=== PATIENT | male | born 1960 | race Caucasian/White ===

== ENCOUNTER 2017-11-24 14:56 | Emergency (ER) | payer OTHER ==
[~2017-11-24] VITALS: Ht 177.8 cm; Wt 109.8 kg
--- NOTE | 2017-11-24 15:20 | ED GENERAL ADULT ---
See Addendum History of Present Illness General Chief Complaint: General Adult Stated Complaint: SENT BY MD ? BLOOD CLOT S/P SURGERY Source: patient, family Exam Limitations: no limitations Vital Signs & Intake/Output Vital Signs & Intake/Output Vital Signs Date Time Temp Pulse Resp B/P B/P Pulse O2 O2 Flow FiO2 Mean Ox Delivery Rate 11/24 2034 97.7 122 18 114/75 93 Room Air ED Intake and Output 11/25 0000 11/24 1200 Intake Total 0 Output Total 550 Balance -550 Intake, Oral 0 Output, Urine 550 Patient 242 lb Weight Allergies Coded Allergies: No Known Allergies (11/24/17) Reconcile Medications Aspirin (Ecotrin*) 81 MG TABLET.DR 1 TAB PO DAILY HEART/BLOOD (Reported) Irbesartan/Hydrochlorothiazide (Irbesartan-Hctz 150-12.5 MG Tb) 150 MG-12.5 MG TABLET 1 TAB PO DAILY BP (Reported) Levothyroxine Sodium 150 MCG TABLET 1 TAB PO DAILY THYROID (Reported) Oxycodone HCl 5 MG TABLET 1-2 TAB PO Q4H PRN ABDOMINAL PAIN (Reported) Sennosides (Senna) 8.6 MG TABLET 2 TAB PO DAILY CONSTIPATION (Reported) Triage Nurses Notes Reviewed? yes Onset: Gradual Duration: day(s): (1) Timing: no prior history Injury Environment: home Severity: moderate Severity Numbers: 8 Modifying Factors: Worsens With: other (EXERTION/BREATHING). HPI: Patient is a 57-year-old male with history of lymphoma, hypertension and hyperlipidemia along with prostate cancer presenting to the emergency department with chief complaint of palpitations, shortness of breath, chills intact fevers at thing going on for the past 24 hours. Patient to taking his prescribed pain medication with little to no relief. I did nausea without vomiting. Patient does report shortness of breath is worse with exertion and deep inspiration. Patient also reporting diffuse abdominal discomfort that is worse with palpation. Patient reports sees been drinking fluids. Has had Acosta catheter in place since the surgical procedure. Called his urologist today and they advised him to come to the emergency department for evaluation to rule out any blood clots. Patient was receiving IV heparin up until 4 days ago. Has not continued aspirin once he got home. (Melissa ITNOCO,Radha) Past History Travel History Traveled to [place] past 21 day No Medical History Any Pertinent Medical History? see below for history Surgical History Surgical History: PROSTECTOMY 11/19/17 Family History Hx Contributory? No (Radha Sánchez) Review of Systems Review of Systems Constitutional: Reports: see HPI, chills, fever, malaise. Comments Review of systems: See HPI, All other systems negative. Constitutional, no weight loss HEENT: No visual changes no sore throat no congestion Cardiovascular: No chest pain or ankle swelling Skin, no jaundice no rashes Respiratory: No cough sputum or hemoptysis GI: no vomiting : No dysuria No hematuria Muscle skeletal: no back pain, no neck pain, Neurologic: No numbness no confusion Psych: No stress anxiety or depression,. Heme/endocrine: No bruising no bleeding no polyuria or polydipsia Immunology: No splenectomy or history of AIDS (Radha Sánchez) Physical Exam Physical Exam General Appearance: alert, awake, anxious, mild distress Comments: Well-developed well-nourished person in no acute distress HEENT:Pupils equally round and reactive to light and accommodation. Nose is atraumatic. Neck: Supple, no lymphadenopathy Back: Nontender, no CVA tenderness. Cardiovascular: Tachycardic rate and rhythms no murmurs rubs or gallops Respiratory: Chest nontender. No respiratory distress.breath sounds diminished to auscultation bilaterally Abdomen: Soft, diffusely tender with more tenderness to palpation in the periumbilical region, positive guarding., slightly distended ,, no appreciable organomegaly. Normal bowel sounds. No ascites Extremity: No edema, no calf tenderness to palpation, normal and equal pulses. Neuro: Alert oriented x3, motor sensory normal, cranial nerves II through XII grossly intact. Skin: Well-healing incisionS noted over the abdomen, no surrounding erythema or edema. There is a scant flat RETICULAR/LACE LIKE rash noted over the anterior abdomen. Blanchable. Slightly erythematous. Psych: Slightly anxious appearing, memory and judgment is normal. Core Measures ACS in differential dx? Yes CVA/TIA Diagnosis: No Sepsis Present: No Sepsis Focused Exam Completed? No (Radha Sánchez) Progress Differential Diagnoses I considered the following diagnoses in my evaluation of the patient: Pulmonary embolus, intra-abdominal infection, UTI, pyelonephritis, hydronephrosis, ACS, sepsis Plan of Care: Orders Procedure Date/time Status Regular Diet 11/25 B Active PARTIAL THROMBOPLASTIN TIME 11/25 0000 Active Patient Data 11/24 2031 Active Patient Data 11/24 1937 Active ED Holding Orders 11/24 1913 Active Admit to inpatient 11/24 1913 Active Vital Signs 11/24 1913 Active Code Status 11/24 1913 Active Intake & Output 11/24 1522 Active Current Medications Sig/Jerry Start time Last Medication Dose Stop Time Status Admin Heparin Sodium 25,000 UNIT Q24H 11/24 1730 AC 11/24 (Porcine) 1808 (Heparin) Sodium Chloride 500 ML Laboratory Tests 11/24/17 2009: Urine Color YEL, Urine Clarity HAZY H, Urine pH 6.5, Ur Specific Cowen <= 1.005, Urine Protein TRACE H, Urine Ketones NEG, Urine Nitrite NEG, Urine Bilirubin NEG, Urine Urobilinogen 0.2, Ur Leukocyte Esterase NEG, Ur Microscopic SEDIMENT EXAMINED, Urine RBC >75 H, Urine WBC 1-3 H, Urine Hemoglobin LARGE H , Urine Glucose NEG 11/24/2017 3:37:54 PM patient appears slightly anxious, patient is tachycardic on exam, slightly diaphoretic. Patient did recently have surgery 6 days ago. Considering postoperative infection first pulmonary embolus. IV fluids initiated along with pain medication. Patient CTA of the chest and CT of the abdomen throughout any infection in that abdominal cavity. Will also send off a urine to tests for UTI. As patient has had Acosta catheter placed since prostatectomy. 11/24/2017 5:02:12 PM spoke with patient's urological surgery, reports that surgery was uneventful and patient tolerated the procedure well.THOUGHT The patient wAS high risk for pulmonary embolus and would be okay with heparinization status post surgery. 11/24/2017 6:08:07 PM patient and family updated on all lab work results. Troponin is elevated. Still pending CT of the chest. Patient currently has IV heparin infusing secondary to high likelihood of pulmonary embolus, discussion with Dr. Baker, he feels that we should start heparin prior to CT results. Patient refused guaiac. Diagnostic Imaging: Viewed by Me: CT Scan. Discussed w/RAD: CT Scan. Radiology Impression: PATIENT: WENDY DOSS JR PRESENT AGE: 57 PATIENT ACCOUNT NO: [id number] : 62 LOCATION: [facility] ORDERING PHYSICIAN: Radha TINOCO SERVICE DATE: 11/24/17 EXAM TYPE: CAT - CT ABD & PELVIS W IV CONTRAST; CTA CHEST-PULMONARY EMBOLISM EXAMINATION: CT ANGIOGRAM CHEST WITH AND WITHOUT CONTRAST (CT PULMONARY ANGIOGRAM FOR PE) CT ABDOMEN AND PELVIS WITH CONTRAST CLINICAL INFORMATION: Shortness of breath, chest pain. COMPARISON: None TECHNIQUE: Subsequently, multidetector volumetric imaging was performed from the thoracic inlet to symphysis pubis following the administration of 120 mL Optiray 350 intravenous contrast. No contrast reaction reported. Sagittal, coronal, and MIP oblique sagittal reformatted images were obtained on the CT workstation, uploaded to PACS, and reviewed. Total exam dose-length product 1758.50 mGy-cm. FINDINGS: QUALITY OF STUDY/CONTRAST BOLUS: Satisfactory. PULMONARY ARTERIES: The pulmonary arteries are normal in diameter. There are filling defects in the proximal right main pulmonary artery and left main pulmonary artery with extension into segmental branches, representing bilateral acute PE. The PE is occlusive in the segmental branches of the pulmonary arteries in the right lower lobe and left lower lobe. THORACIC AORTA: No aneurysm. No thoracic aortic dissection. LUNG: There are wedge-shaped densities at the lung bases bilaterally. There are also opacities in the lingula, superior right lower lobe. These opacities could represent a combination of atelectasis and possible pulmonary infarct. No pleural effusion. There is a 5 mm noncalcified nodular density in the posterior right lower lobe as seen on axial image 34/56 from series 3. PLEURA: No pleural effusion or pneumothorax. MEDIASTINUM: Normal heart size. No pericardial effusion. No hilar or mediastinal lymphadenopathy. No evidence of septal bowing or right heart strain. CHEST WALL/AXILLA: No axillary or internal mammary lymphadenopathy. ABDOMEN AND PELVIS: The liver, spleen, adrenal glands, pancreas are within normal limits. The gallbladder is slightly overdistended and contains a 2.1 cm calcified gallstone. No inflammatory changes surrounding the gallbladder to suggest acute cholecystitis. No biliary ductal dilatation. The kidneys are normal in size and cortical enhancement. No hydronephrosis. There is a 10 mm cortical hypodensity in mid part of the left kidney, too small to fully characterize and can represent a renal cortical cyst. No renal stone. The ureters are not dilated. The urinary bladder is empty in the presence of indwelling catheter. The patient is status post prostatectomy 5 days ago. There is a small amount of free air in the pelvis and lower anterior abdominal wall, which can be considered postprocedural. There are inflammatory changes in the pelvis, surrounding the urinary bladder and in the prostatectomy surgical bed. The soft tissue stranding extends to the lower abdomen, along the left paracolic gutter where there is a small amount of free fluid. The fluid is simple in density, measures 7 Hounsfield units. The stomach, duodenum, small bowel loops and colon are unremarkable. The appendix is visualized and without evidence of acute appendicitis. The abdominal aorta is normal in diameter. There is a 0.9 x 1.4 cm lymph node in the distal aortocaval region, just before the aortic bifurcation as seen on axial image 418/840 from series 6. No mesenteric adenopathy. No visible pelvic sidewall adenopathy, considering limitations due to postop inflammatory changes. OSSEOUS STRUCTURES: There is bilateral L5 pars defects and grade 1 anterolisthesis of L5 on S1. No aggressive bony lesion is seen. IMPRESSION: 1. The exam is positive for bilateral extensive PE. No evidence of right ventricular strain. 2. Pulmonary opacities, which could represent a combination of atelectasis and/or pulmonary infarct. 3. A 5 mm right lower lobe noncalcified pulmonary nodule. Follow-up based on Fleischner criteria is suggested. 4. Patient is status post prostatectomy. There are inflammatory changes in the pelvic cavity with small amount of free fluid in the left paracolic gutter and a small amount of free air in the pelvis and lower anterior abdominal wall which are considered postprocedural changes. Clinical correlation is suggested. 5. Gallstone. VTE: Positive. The findings were reported to Radha Torres at 7:10 PM on 11/24/2017 by myself. Various management parameters for solitary pulmonary nodules are in the literature. According to the Fleischner Society, recommendations for pulmonary nodules are as follows: Nodule size < or = to 4 mm in LOW RISK PATIENTS: No follow up needed. Nodule size < or = to 4 mm in HIGH RISK PATIENTS: Follow up CT at 12 months; if unchanged, no further follow up. Nodule size > 4-6 mm in LOW RISK PATIENTS: Follow up CT at 12 months; if unchanged, no further follow up. Nodule size > 4-6 mm in HIGH RISK PATIENTS: Initial follow up CT at 6-12 months, then at 18-24 months if no change. Nodule size > 6-8 mm in LOW RISK PATIENTS: Initial follow up CT at 6-12 months, then at 18-24 months if no change. Nodule size > 6-8 mm in HIGH RISK PATIENTS: Initial follow up CT at 3-6 months, then 9-12 months and 24 months if no change. Nodule size > 8 mm in LOW RISK PATIENTS: Follow up CT at around 3, 9, and 24 months, dynamic contrast-enhanced CT, PET, and/or biopsy. Nodule size > 8 mm in HIGH RISK PATIENTS: Same as for low-risk patients. DICTATED BY: Dedra Morris MD DATE/TIME DICTATED:11/24/171899 SPEEDBOAT DRIVER:MARVIN DATE/TIME TRANSCRIBED:11/24/171899 CONFIDENTIAL, DO NOT COPY WITHOUT APPROPRIATE AUTHORIZATION. <Electronically signed in Other Vendor System> SIGNED BY: Dedra Morris MD 11/24/171947 Initial ED EKG: SINUS TACHYCARDIA AT 124 BPM (Radha Sánchez) Departure Departure Time of Disposition: 1937 Disposition: STILL A PATIENT Condition: Stable Clinical Impression Primary Impression: Pulmonary embolus Qualifiers: Pulmonary embolism type: other Chronicity: acute Acute cor pulmonale presence: without acute cor pulmonale Qualified Code: I26.99 - Other pulmonary embolism without acute cor pulmonale Secondary Impressions: Elevated troponin Referrals: Sean Velez MD (PCP/Family) Departure Forms: Customer Survey General Discharge Information Admission Note Spoke With: Zachary Antonio MD Documentation of Exam: Documentation of any treatments & extenuating circumstances including Concerns Regarding Discharge (functional status, medication knowledge or non-compliance, living conditions, etc.) that warrant an admission rather than observation: requiring IV heparin for bilateral pulmonary embolus, requiring vascular consultation, transition to oral anticoagulation medication, telemetry monitoring ON ICU, trending troponins, cardiology consultation. Discharge at this time is medically harmful as it would likely lead to worsening symptoms which could end in . (Radha Sánchez) PA/STOCK PATCH SAWYER Co-Sign Statement Statement: ED Attending supervision documentation- [X] I saw and evaluated the patient. I have also reviewed all the pertinent lab results and diagnostic results. I agree with the findings and the plan of care as documented in the PA's/STOCK PATCH SAWYER's documentation. [X] I have reviewed the ED Record and agree with the PA's/STOCK PATCH SAWYER's documentation. [] Additions or exceptions (if any) to the PAs/STOCK PATCH SAWYER's note and plan are summarized below: [Status post prostatectomy now with tachycardia, shortness of breath and high risk for PE. Patient started on heparin and prior to CAT scan. Risks and benefits were weight with the potential for postoperative bleeding. Case is discussed with his urologist who agreed with the plan. CAT scan ultimately showed multiple PEs.] (Samuel GILES,Clive Nguyen) Critical Care Note Critical Care Note Critical Care Time: non-applicable (Melissa TINOCO,Radha)
[2017-11-24] MEDS ORDERED: OXYCODONE HCL5 M1 PO (15:28)
[2017-11-24] MEDS ORDERED: LEVOTHYROXINE150 MCG PO (15:30)
[2017-11-24] MEDS ORDERED: IRBESARTAN-HCT1 EACH PO (15:40)
[2017-11-24] MEDS ORDERED: ASPIRIN EC81 M1 PO (15:41)
[2017-11-24] MEDS ORDERED: SENNA8.6 M3 PO (15:41)
[2017-11-24 16:07] LABS: ABSOLUTE BASOPHIL COUNT 0.1 /CUMM (0.0-0.2); ABSOLUTE EOSINOPHIL COUNT 0.2 /CUMM (0.0-0.7); ABSOLUTE GRANULOCYTE CT 10.4 /CUMM (1.4-6.5); ABSOLUTE LYMPH COUNT 1.5 /CUMM (1.2-3.4); ABSOLUTE MONOCYTE COUNT 1.4 /CUMM (0.10-0.60); BASOPHIL % 0.8 % (0.0-2.0); EOSINOPHIL % 1.8 % (0-5); GRANULOCYTE % 76.1 % (42.2-75.2); HEMATOCRIT 47.2 % (42-52); MEAN CORPUSCULAR HGB 29.8 PG (27.0-31.0); MEAN CORPUSCULAR HGB CONC 33.1 G/DL (33.0-37.0); MEAN CORPUSCULAR VOLUME 90.1 FL (80.0-94.0); MEAN PLATELET VOLUME 8.4 FL (7.4-10.4); PLATELET COUNT 251 /CUMM (130-400); RBC DISTRIBUTION WIDTH 13.6 % (11.5-14.5); RED BLOOD CELL CT 5.24 /CUMM (4.70-6.10); WHITE BLOOD CELL COUNT 13.7 /CUMM (4.8-10.8)
[2017-11-24 18:22] LABS: PT 12.8 SEC (9.4-12.5); PTT 30 SEC (25-37)
--- NOTE | 2017-11-24 19:48 | CT SCAN REPORT ---
EXAMINATION: CT ANGIOGRAM CHEST WITH AND WITHOUT CONTRAST (CT PULMONARY ANGIOGRAM FOR PE) CT ABDOMEN AND PELVIS WITH CONTRAST CLINICAL INFORMATION: Shortness of breath, chest pain. COMPARISON: None TECHNIQUE: Subsequently, multidetector volumetric imaging was performed from the thoracic inlet to symphysis pubis following the administration of 120 mL Optiray 350 intravenous contrast. No contrast reaction reported. Sagittal, coronal, and MIP oblique sagittal reformatted images were obtained on the CT workstation, uploaded to PACS, and reviewed. Total exam dose-length product 1758.50 mGy-cm. FINDINGS: QUALITY OF STUDY/CONTRAST BOLUS: Satisfactory. PULMONARY ARTERIES: The pulmonary arteries are normal in diameter. There are filling defects in the proximal right main pulmonary artery and left main pulmonary artery with extension into segmental branches, representing bilateral acute PE. The PE is occlusive in the segmental branches of the pulmonary arteries in the right lower lobe and left lower lobe. THORACIC AORTA: No aneurysm. No thoracic aortic dissection. LUNG: There are wedge-shaped densities at the lung bases bilaterally. There are also opacities in the lingula, superior right lower lobe. These opacities could represent a combination of atelectasis and possible pulmonary infarct. No pleural effusion. There is a 5 mm noncalcified nodular density in the posterior right lower lobe as seen on axial image 34/56 from series 3. PLEURA: No pleural effusion or pneumothorax. MEDIASTINUM: Normal heart size. No pericardial effusion. No hilar or mediastinal lymphadenopathy. No evidence of septal bowing or right heart strain. CHEST WALL/AXILLA: No axillary or internal mammary lymphadenopathy. ABDOMEN AND PELVIS: The liver, spleen, adrenal glands, pancreas are within normal limits. The gallbladder is slightly overdistended and contains a 2.1 cm calcified gallstone. No inflammatory changes surrounding the gallbladder to suggest acute cholecystitis. No biliary ductal dilatation. The kidneys are normal in size and cortical enhancement. No hydronephrosis. There is a 10 mm cortical hypodensity in mid part of the left kidney, too small to fully characterize and can represent a renal cortical cyst. No renal stone. The ureters are not dilated. The urinary bladder is empty in the presence of indwelling catheter. The patient is status post prostatectomy 5 days ago. There is a small amount of free air in the pelvis and lower anterior abdominal wall, which can be considered postprocedural. There are inflammatory changes in the pelvis, surrounding the urinary bladder and in the prostatectomy surgical bed. The soft tissue stranding extends to the lower abdomen, along the left paracolic gutter where there is a small amount of free fluid. The fluid is simple in density, measures 7 Hounsfield units. The stomach, duodenum, small bowel loops and colon are unremarkable. The appendix is visualized and without evidence of acute appendicitis. The abdominal aorta is normal in diameter. There is a 0.9 x 1.4 cm lymph node in the distal aortocaval region, just before the aortic bifurcation as seen on axial image 418/840 from series 6. No mesenteric adenopathy. No visible pelvic sidewall adenopathy, considering limitations due to postop inflammatory changes. OSSEOUS STRUCTURES: There is bilateral L5 pars defects and grade 1 anterolisthesis of L5 on S1. No aggressive bony lesion is seen. IMPRESSION: 1. The exam is positive for bilateral extensive PE. No evidence of right ventricular strain. 2. Pulmonary opacities, which could represent a combination of atelectasis and/or pulmonary infarct. 3. A 5 mm right lower lobe noncalcified pulmonary nodule. Follow-up based on Fleischner criteria is suggested. 4. Patient is status post prostatectomy. There are inflammatory changes in the pelvic cavity with small amount of free fluid in the left paracolic gutter and a small amount of free air in the pelvis and lower anterior abdominal wall which are considered postprocedural changes. Clinical correlation is suggested. 5. Gallstone. VTE: Positive. The findings were reported to Radha Torres at 7:10 PM on 11/24/2017 by myself. Various management parameters for solitary pulmonary nodules are in the literature. According to the Fleischner Society, recommendations for pulmonary nodules are as follows: Nodule size < or = to 4 mm in LOW RISK PATIENTS: No follow up needed. Nodule size < or = to 4 mm in HIGH RISK PATIENTS: Follow up CT at 12 months; if unchanged, no further follow up. Nodule size > 4-6 mm in LOW RISK PATIENTS: Follow up CT at 12 months; if unchanged, no further follow up. Nodule size > 4-6 mm in HIGH RISK PATIENTS: Initial follow up CT at 6-12 months, then at 18-24 months if no change. Nodule size > 6-8 mm in LOW RISK PATIENTS: Initial follow up CT at 6-12 months, then at 18-24 months if no change. Nodule size > 6-8 mm in HIGH RISK PATIENTS: Initial follow up CT at 3-6 months, then 9-12 months and 24 months if no change. Nodule size > 8 mm in LOW RISK PATIENTS: Follow up CT at around 3, 9, and 24 months, dynamic contrast-enhanced CT, PET, and/or biopsy. Nodule size > 8 mm in HIGH RISK PATIENTS: Same as for low-risk patients.
[2017-11-24 20:35] VITALS: BP 114/75
== END 2017-11-24 22:03 | disposition short-term general hospital (02) ==
LOC: ERH 14:56 → ERHI 19:14 → CANRESERV 20:22 → ENRESERV 20:22 → EDBEDREQ 20:34 → ERHI 20:38 → CANBEDREQ 11-25 07:32 → ERHI 11-26 07:36
PROVIDERS: Physician Assistant
DX: I26.99 Other pulmonary embolism without acute cor pulmonale (principal); R77.8 Other specified abnormalities of plasma proteins; R00.2 Palpitations; R50.9 Fever, unspecified; I10 Essential (primary) hypertension
CPT/HCPCS: ERO; 74177; 81001; 87040; 93005; 93010; 96374; 96375; 99291; J1644